=== PATIENT | male | born 1975 | race Caucasian/White ===

== ENCOUNTER 2023-09-23 09:57 | Emergency (ER) | payer OTHER, SELFPAY ==
--- NOTE | ~2023-09-23 | US_ITS ---
EXAMINATION: US SCROTUM CLINICAL INFORMATION: Left testicular pain/swelling. COMPARISON: None available. TECHNIQUE: A sonogram of the scrotum was performed assessing ye-scale appearance and color Doppler flow. Spectral Doppler analysis of the arterial and venous flow were performed in the testes bilaterally. FINDINGS: RIGHT: Right testicle measures 4.1 x 2.8 x 3.6 cm, volume 21 mL. No focal testicular parenchymal lesions are visualized. Spectral Doppler analysis of the arterial and venous flow is normal in the right testis. Right epididymal head is normal in size. No right hydrocele or varicocele is seen. Right epididymal Doppler flow is normal. LEFT: Left testicle measures 4.1 x 2.5 x 2.7 cm, volume 15 mL. No focal testicular parenchymal lesions are visualized. Spectral Doppler analysis of the arterial and venous flow is normal in the left testis. Left epididymal head is normal in size. No left varicocele is seen. Left epididymal Doppler flow is normal. A large left hydrocele is noted. US/US scrotum IMPRESSION: 1. Normal testicles and epididymides. 2. Large left hydrocele.
--- NOTE | ~2023-09-23 | US_ITS ---
EXAMINATION: US SCROTUM CLINICAL INFORMATION: Left testicular pain/swelling. COMPARISON: None available. TECHNIQUE: A sonogram of the scrotum was performed assessing ye-scale appearance and color Doppler flow. Spectral Doppler analysis of the arterial and venous flow were performed in the testes bilaterally. FINDINGS: RIGHT: Right testicle measures 4.1 x 2.8 x 3.6 cm, volume 21 mL. No focal testicular parenchymal lesions are visualized. Spectral Doppler analysis of the arterial and venous flow is normal in the right testis. Right epididymal head is normal in size. No right hydrocele or varicocele is seen. Right epididymal Doppler flow is normal. LEFT: Left testicle measures 4.1 x 2.5 x 2.7 cm, volume 15 mL. No focal testicular parenchymal lesions are visualized. Spectral Doppler analysis of the arterial and venous flow is normal in the left testis. Left epididymal head is normal in size. No left varicocele is seen. Left epididymal Doppler flow is normal. A large left hydrocele is noted. US/US scrotum doppler IMPRESSION: 1. Normal testicles and epididymides. 2. Large left hydrocele.
[2023-09-23 10:13] VITALS: BP 130/41; PULSE 69; RESP 18; TEMP 36.8; O2SAT 98; BMI 32.4
--- NOTE | 2023-09-23 11:02 | PC.NURSE ---
PT'S L SCROTUM IS LARGER THAN THE R SIDE. PT STATES TENDER WITH HIM PALPATING. AWARE.
--- NOTE | 2023-09-23 11:07 | ED.MALEGU ---
HPI - Male Genitourinary General Chief complaint: Urogenital-Male Stated complaint: testicle issues Time Seen by Provider: 09/23/23 11:04 Source: patient Mode of arrival: ambulatory Limitations: no limitations History of Present Illness HPI Narrative: Patient is a a 48-year old male presenting to the emergency department with complaint of left testicular pain and swelling for the past 2 weeks. States pain has been constant. At time pain radiates around to lower back. Denies fever, nausea, vomiting. Denies penile discharge. States has not had sexual intercourse for several years, denies concern for STIs. Denies rash or erythema. Denies dysuria, frequency, hematuria or other urinary complaints. Pain increases with sitting due to pressure. MD Complaint: testicle pain and testicle swelling Onset (ago): week(s) Duration: constant Location: left testicle Radiation: left inguinal region Severity scale (1-10): 5 Quality: aching Relieving factors: none Exacerbating factors: palpation Associated symptoms: Reports denies other symptoms Related Data Sexually active: No Allergies Allergy/AdvReac Type Severity Reaction Status Date / Time No Known Allergies Allergy Verified 09/23/23 10:12 Review of Systems Review of Systems: As per HPI Yes all other systems are reviewed and are negative Constitutional: Constitutional: Reports as per HPI [facility] Social History Social History Smoked in Last 30 Days: Yes Use of substances other than those prescribed or required for medical reasons: Yes Advance Directives: No Advance Directives Information Provided: No Physical Exam Vital Signs: Vital Signs: Last Vital Signs Temp 98.4 F 09/23/23 12:09 Pulse 57 09/23/23 12:09 Resp 16 09/23/23 12:09 BP 119/53 L 09/23/23 12:09 Pulse Ox 98 09/23/23 12:09 O2 Del Method Room Air 09/23/23 12:09 BMI result Body Mass Index 32.4 Vital signs have been reviewed and appear to be correct. Blood pressure normal. Heart rate normal. Respiratory rate normal. Temperature normal. Oxygen saturation normal. Const: General: cooperative, healthy appearing and no acute distress Orientation/consciousness: oriented to person, oriented to place, oriented to time and patient oriented x3 Limitations: no limitations HEENT: Head: Yes normocephalic and Yes atraumatic Ears: external ears normal General nose exam: Normal external nose present Face and sinus: Yes face symmetric Mouth: oropharynx normal and moist mucous membranes Throat: Yes uvula midline Eyes: Pupils: Equal, round and reactive pupils present Neck: Neck: Yes normal visual inspection and Yes supple Resp: Effort & Inspection: normal respiratory effort and able to speak in complete sentences Auscultation: clear to auscultation bilaterally Cardio: Rate: regular rate Rhythm: regular rhythm Heart sounds: S1 normal heart sound present and S2 normal heart sound present GI: Palpation (GI): Soft to palpation and nontender Auscultation: normoactive bowel sounds : Other: Exam chaperoned by SHERICE Malone student General: Yes no CVA tenderness Penis: normal penis Scrotum: no ecchymosis, not erythematous and testes descended bilaterally Testes: testicular lie normal and epididymal tenderness on the left Back/Spine/Pelvis: Back: no CVA tenderness Skin: General skin exam: elasticity normal and turgor normal Neuro: General: oriented to person, oriented to place, oriented to time, patient oriented x3, moves all extremities, no focal motor deficits and CN's II-XI intact bilaterally Cranial nerves: Yes Equal, round and reactive pupils present Cognition (Neuro): normal cognition Extrem: General: Yes full ROM, Yes no pedal edema and Yes no calf tenderness Psych: Mental Status: mental status grossly normal Affect: normal affect Thought process: Normal thought process present Medical Decision Making Medical Decision Making [facility] Narrative: Patient is a a 48-year old male presenting to the emergency department with complaint of left testicular pain and swelling for the past 2 weeks. On exam patient is awake, A+Ox3, VS WNL, afebrile, normal neurological exam without focal deficits, physical exam findings as above. Given reported symptoms and physical exam findings, initial differential includes testicular torsion, epididymitis, epididymo-orchitis, hydrocele, varicocele, STI, UTI. Ultrasound notable for large hydrocele. My interpretation is in agreement with the radiologist's interpretation. No evidence of infection on UA. CT NG pending, will update patient with any positive results. Return precautions discussed at bedside. Will refer to urology for any ongoing symptoms. Patient verbalized understanding of and agreement with plan. Differential Diagnosis Differential Diagnoses: The differential diagnosis associated with the presentation includes As per [facility]. Admission/Observation Consideration of admission/observation: Escalation of care including admission/observation considered Lab Data [facility] Lab Attestation statement: I reviewed the patient's lab results. As per MDM. Labs: Lab Results 09/23/23 Range/Units 11:36 Urine Color Yellow Urine Appearance Clear Urine pH 7.0 (5.0-9.0) Ur Specific [place] 1.015 (1.005-1.025) Urine Protein Negative (Neg-Trace) mg/dL Urine Glucose (UA) Negative (Negative) mg/dL Urine Ketones Negative (Negative) mg/dL Urine Blood Small (1+) H (Negative) Urine Nitrite Negative (Negative) Ur Leukocyte Esterase Negative (Negative) Urine RBC 6-10 H (0-2) /HPF Urine WBC 0-5 (0-5) /HPF Ur Squamous Epith Cells 0-2 (0-2) /HPF Urine Bacteria None Seen (None Seen) Hyaline Casts 0-2 (0-2) /LPF Independent Interpretation I performed an independent interpretation of an: Ultrasound Interpretation: Large left hydrocele, no evidence of torsion Radiology Impression Discussion of test interpretation with radiology: I have reviewed the radiologist's reading. Radiologist Impression: US/US scrotum IMPRESSION: 1. Normal testicles and epididymides. 2. Large left hydrocele. External Record Review External record reviewed: Inpatient record, Office record and Outpatient record Discharge Plan Discharge Clinical Impression: Hydrocele, left Patient Disposition: Home, Self-Care Instructions: Hydrocele (ED), Testicle Pain (ED), Scrotal Pain (ED) Additional Instructions: You were evaluated in the emergency department today for scrotal pain and swelling. Your ultrasound revealed a hydrocele which should resolve on it's own. You can purchase supportive underwear to provide some relief. You can also take 650 mg of Tylenol or 600 mg of ibuprofen every 6 hours as needed for pain. You can also alternate these medications every 3 hours if needed. For example, at noon take Tylenol, then at 3:00 p.m. take ibuprofen, then at 6:00 p.m. take Tylenol. You are being referred to Urology for any ongoing symptoms please call their office to schedule an appointment if needed. Return to the emergency department if you develop worsening pain, increased swelling, redness, discharge or drainage from your penis, vomiting, fever 100.4? F or greater, back or flank pain, or any other concerning symptoms. Referrals: [facility] [Provider Group]
--- NOTE | 2023-09-23 11:14 | PC.NURSE ---
PT AMB (I) GAIT STEADY TO ULTRASOUND WITH US TECH.
[2023-09-23 11:47] LABS: Appearance Urine Clear; Color Urine Yellow; Glucose Urine UA Negative (Negative); Leukocyte Esterase Urine Negative (Negative); Nitrite Urine Negative (Negative); Specific Gravity - Urine 1.015 (1.005-1.025); UMIC TRIGGER UACC YES; Urine Blood Small (1+) (Negative); Urine Ketones Negative (Negative); Urine Protein Negative (Neg-Trace)
[2023-09-23 11:54] LABS: Bacteria Urine None Seen (None Seen); Hyaline Casts Urine 0-2 /LPF (0-2); Squamous Epithelial Cell Urine 0-2 /HPF (0-2); WBC Urine 0-5 /HPF (0-5)
[2023-09-23 12:09] VITALS: BP 119/53; PULSE 57; RESP 16; TEMP 36.9; O2SAT 98
[2023-09-24 03:58] LABS: CT PCR NOT DETECTED (Not Detect.); NG PCR NOT DETECTED (Not Detect.)
== END 2023-09-23 13:08 | disposition home or self-care (01) ==
PROVIDERS: Registered Nurse Emergency; Emergency Provider Emergency Medicine Emergency Medical Services
DX: N43.3 Hydrocele, unspecified (principal); N50.812 Left testicular pain; M54.50 Low back pain, unspecified; R10.2 Pelvic and perineal pain; Z79.899 Other long term (current) drug therapy
CPT/HCPCS: 0353U; 51798; 76870; 81001; 93975; 99284

== ENCOUNTER 2023-10-27 10:51 | Outpatient (AMB) | payer OTHER, SELFPAY ==
--- NOTE | 2023-10-27 10:51 | MHC.OFFVIS ---
Intake Intake Visit Reasons: large left hydrocele Intake Note: New Patient presents for initial visit for large left hydrocele Urology Medications: none Blood Thinner: none Bobbin Trucker Required: No Accompanied by: Self / Same As Patient Allergies No Known Allergies Allergy (Verified 10/27/23 11:20) Medication List - Last Reconciled 10/27/23 by SHAWANDA Herrera No Known Home Meds HPI HPI Comments History of Present Illness Details Rigo is a very pleasant 48-year-old male patient. He presents to the office today as a new patient for large left-sided hydrocele. In discussion with the patient today he reports having seeked emergecny room care the end of August for left-sided testicular pain he had been experiencing. A scrotal ultrasound was ordered and performed. These results reviewed with the patient today. Left epididymal head is normal in size. No left varicocele is seen. Left epididymal Doppler flow is normal. A large left hydrocele is noted. He reports pain/discomfort is more prominent with walking/activity. When asked he reports noting pain and increased size of left testicle for approximately 2 months now. He denies any issues with his urination and or noting penile discharge. When asked he states he has not had sexual intercourse for years denies any concerns for STDs. In assessment of the patient today moderate size left sided hydrocele noted otherwise no open areas, drainage, or reddness noted. In office urinalysis results reviewed with the patient today. Discussed at length treatment options with surveillance monitoring verses in office drainage verses surgical intervention. Discussed risks and benefits of these interventions at length. All questions were answered. Review of Systems Const All systems reviewed & are unremarkable except as noted in HPI and below Physical Exam Const General: cooperative, healthy appearing, comfortable, no acute distress, well developed, alert and awake Orientation/consciousness: patient oriented x3 Limitations: no limitations HEENT Head: Yes normal to inspection, Yes normocephalic and Yes atraumatic Ears: hearing grossly normal bilaterally Eyes General: appearance normal, both eyes and all related structures Neck Neck: Yes normal visual inspection and Yes trachea midline Chest Chest palpation & inspection: normal inspection of the chest Resp Effort & Inspection: normal respiratory effort and able to speak in complete sentences Cardio Rate: regular rate GI Inspection: Yes normal to inspection General: Yes no CVA tenderness Penis: circumcised Meatus: meatus normal Scrotum: Hydrocele present (moderate) on the left Back/Spine/Pelvis Back: no CVA tenderness Skin General skin exam: no rashes or lesions noted Neuro General: patient oriented x3 Extrem General: Yes normal to inspection Psych Appearance: grossly normal and well kempt Mental Status: mental status grossly normal Speech and movement: Normal speech and movement present and Clear speech present Affect: normal affect Attitude: cooperative Thought process: Normal thought process present Thought content: Normal thought content present Insight: Fair insight present (Psych) Judgement: Fair judgement present (Psych) Results AMB Urinalysis, Automated UA Leukoctes 0 Theo/uL Last Edit by Receptor on 10/27/23 11:08 UA Nitrite Negative Last Edit by Receptor on 10/27/23 11:08 UA Urobilinogen 0.2 mg/dL Last Edit by Receptor on 10/27/23 11:08 UA Protein 15 mg/dL Last Edit by Receptor on 10/27/23 11:08 UA pH 6.0 Last Edit by Receptor on 10/27/23 11:08 UA Blood 200 Donta/uL Last Edit by Receptor on 10/27/23 11:08 UA Specific [place] 1.030 Last Edit by Receptor on 10/27/23 11:08 UA Ketone Negative Last Edit by Receptor on 10/27/23 11:08 UA Bilirubin 0 mg/dL Last Edit by Receptor on 10/27/23 11:08 UA Glucose 0 mg/dL Last Edit by Receptor on 10/27/23 11:08 Results Reviewed Results Reviewed: Laboratory Last Values Urine pH (Auto) 6.0 10/27/23 10:52 Specific [place] (Auto) 1.030 10/27/23 10:52 Urine Protein (Auto) 15 mg/dL 10/27/23 10:52 Glucose (UA)(Auto) 0 mg/dL 10/27/23 10:52 Urine Ketones (Auto) Negative 10/27/23 10:52 Urine Blood (Auto) 200 Donta/uL 10/27/23 10:52 Urine Nitrite (Auto) Negative 10/27/23 10:52 Urine Bilirubin (Auto) 0 mg/dL 10/27/23 10:52 Urine Urobilinogen (Auto) 0.2 mg/dL 10/27/23 10:52 Leukocyte Esterase (Auto) 0 Theo/uL 10/27/23 10:52 Date of Service: 09/23/23 EXAMINATION: US SCROTUM FINDINGS: RIGHT: Right testicle measures 4.1 x 2.8 x 3.6 cm, volume 21 mL. No focal testicular parenchymal lesions are visualized. Spectral Doppler analysis of the arterial and venous flow is normal in the right testis. Right epididymal head is normal in size. No right hydrocele or varicocele is seen. Right epididymal Doppler flow is normal. LEFT: Left testicle measures 4.1 x 2.5 x 2.7 cm, volume 15 mL. No focal testicular parenchymal lesions are visualized. Spectral Doppler analysis of the arterial and venous flow is normal in the left testis. Left epididymal head is normal in size. No left varicocele is seen. Left epididymal Doppler flow is normal. A large left hydrocele is noted. IMPRESSION: 1. Normal testicles and epididymides. 2. Large left hydrocele. Assessment & Plan Assessment & Plan (1) Hydrocele: Code(s): N43.3 - Hydrocele, unspecified Plan: Risks, benefits and alternatives to therapy were discussed. These include but are not limited to infection, bleeding, damage to local organs and tissues, need for further interventions. ? Anesthetic risks regarding cardiac arrhythmia, blood clots, and potential mortality were discussed. The patient understands the typical recovery time and the outpatient nature of the procedure. After consideration of these risks the patient gives full informed consent and they wish to move ahead with the procedure. Plan In office urinalysis results reviewed with the patient today; as noted above. Discussed at length treatment options for hydrocele; surveillance monitoring verses in office drainage verses surgical intervention; discussed risk and benifits of these interventions at length He denies any bothersome urinary issues. He is happy with his current voiding parameters. Discussed potential causes of hydroceles. Will schedule for left sided hydrocelectomy as discussed with Dr. Juarez. Follow up s/p left-sided hydrocelectomy per Dr. Yusuf orders or sooner with any issues, concerns, and or questions. Orders: Orders AMB Urinalysis Automated Today Z13.9 - Encounter for screening, unspecified Patient Instructions: The patient had an opportunity to ask questions regarding the treatment plan. All questions were answered. Physical exam, labs, and imaging were discussed and reviewed in detail. As well as risks, benefits, and discussion of treatment choices. No major barriers to understanding were identified. The patient expressed understanding and agreement with the above treatment plan. The patient was made aware they should contact our office by phone for worsening of their current condition, the appearance of new symptoms, or with any questions or concerns. Compliance is encouraged with any medications and follow up testing that is ordered. It is a privilege to be allowed the opportunity to participate in? your urological care.? Again, if you have any questions or concerns If you have any questions or concerns please do not hesitate to contact me. The office is [phone]. This note is constructed using voice recognition software. While every effort has been made to ensure accuracy pv design and installation technician errors may have been included. Yours sincerely, SHAWANDA Herrera Coding Level of Care Code New Pt Level 4 (18042) Diagnoses Hydrocele N43.3
== END 2023-10-27 11:20 | disposition home or self-care (01) ==
PROVIDERS: Visit Provider Nurse Practitioner Family
DX: Z13.9 Encounter for screening, unspecified (principal); N43.3 Hydrocele, unspecified
CPT/HCPCS: 99204

== ENCOUNTER → 2023-10-27 10:57 | Outpatient (BNVA) | payer OTHER, SELFPAY | PROVIDERS: Visit Provider Nurse Practitioner Family | DX: N43.3 Hydrocele, unspecified (principal) | CPT/HCPCS: 81003; 99202 ==

== ENCOUNTER 2023-12-24 13:19 | Outpatient (AMB) | payer OTHER, SELFPAY ==
--- NOTE | 2023-12-24 14:03 | A.OFFVIS_ITS ---
Intake Intake Visit Reasons: H&P left-sided hydrocelectomy (Confirmed) Allergies No Known Allergies Allergy (Verified 10/27/23 11:20) HPI HPI Comments History of Present Illness Details Rigo is a pleasant male. He is seen for the following urologic conditions - hydrocele Telemedicine Evaluation 15 min Consultation [employer] attempted Hydrocele Large left hydrocele impinging activities of daily living Difficult to walk and cross his legs Intermittent pain Ultrasound with normal left epididymis enlarged left hydrocele Discussed surgery which will require drain in place for 2 days afterwards and healing process 4-6 weeks. He is happy to proceed Review of Systems Const All systems reviewed & are unremarkable except as noted in HPI and below Reports no additional complaints Resp Reports no additional complaints GI Reports no additional complaints Reports as per HPI Musc Reports no additional complaints Physical Exam Telemedicine evaluation Appropriate responses Regular breathing rate and rhythm HEENT Head: Yes normal to inspection Ears: hearing grossly normal bilaterally Eyes General: appearance normal, both eyes and all related structures Neck Neck: Yes normal visual inspection Chest Chest palpation & inspection: normal inspection of the chest Resp Effort & Inspection: normal respiratory effort and able to speak in complete sentences Assessment & Plan Assessment & Plan (1) Hydrocele: Code(s): N43.3 - Hydrocele, unspecified Plan Risks, benefits and alternatives to therapy were discussed. These include but are not limited to infection, bleeding, damage to local organs and tissues, need for further interventions. Anesthetic risks regarding cardiac arrhythmia, blood clots, and potential mortality were discussed. The patient understands the typical recovery time and the outpatient nature of the procedure. After consideration of these risks the patient gives full informed consent and they wish to move ahead with the procedure. Left hydrocelectomy Patient Instructions: Imaging studies, laboratory and physical exam results were discussed and reviewed in detail. No major barriers to patient understanding were identified. An opportunity to ask questions regarding the treatment plan was provided. All questions were answered. The patient expressed understanding and agreement with the above treatment plan. The patient is aware they should contact our office by phone for worsening of their current condition or the appearance of new urologic symptoms. Compliance is encouraged with any medications and followup testing that is ordered. It is a privilege to participate in the urologic care of your patient. If you have any questions or concerns regarding treatment for the above conditions, or other urologic issues, please do not hesitate to contact me. The office telephone contact is [phone]. This note is constructed using voice recognition software. While every effort has been made to ensure accuracy hide and skin fleshing machine operator errors may have been included. Yours sincerely, Dr Denis Juarez MD, [facility] - Urology Providers of Expert, Compassionate Care for the Genitourinary System Telehealth Telehealth Location of provider rendering services: practice address Location of patient: address on file Patient Identification confirmed using: Name, : Yes Telehealth method: video Patient verbally consented to treatment: Yes Patient verbally consented to billing insurance company: Yes Patient informed of any privacy concerns related to visit: Yes Coding Level of Care Code Tele Est Pt Level 3 (41513) Diagnoses Hydrocele N43.3
== END 2023-12-24 14:22 | disposition home or self-care (01) ==
LOC: HO.HUSH 13:20
PROVIDERS: Visit Provider Urology
DX: N43.3 Hydrocele, unspecified (principal)
CPT/HCPCS: 99213

== ENCOUNTER → 2023-12-24 13:19 | Outpatient (BNVA) | payer OTHER, SELFPAY | PROVIDERS: Visit Provider Urology ==

== ENCOUNTER → 2023-12-27 09:59 | Day surgery (SDC) | payer OTHER, SELFPAY ==
--- NOTE | 2023-12-24 13:15 | P.CONAN_ITS ---
Documented by User: Trinh Green NP 12/24/23 13:15 HPI - Anesthesia Eval Consult details Narrative: 48yo M for Hydrocele Repair [facility] Active Problems Active Problems: All Active Problems (Updated 10/27/23 @ 11:25 by LOLI Herrera) Hydrocele (Acute) Social History Social History Patient Tobacco Use Status: Current someday Tobacco user Tobacco use type: Smokeless Tobacco Use of substances other than those prescribed or required for medical reasons: Yes Substance Use Frequency: Occasionally Are you DNR?: No Advance Directives: No Advance Directives Information Provided: Yes Advance Directives on File: No Meds Allergies Allergy/AdvReac Type Severity Reaction Status Date / Time No Known Allergies Allergy Verified 10/27/23 11:20 Home Medications Medication Instructions Recorded Confirmed Last Taken Type No Known Home Meds 10/27/23 10/27/23 Unknown History Assessment and Plan Assessment Anesthesia Assessment: Chart Reviewed Documented by User: Lito Oconnell MD 12/27/23 12:09 [facility] Family History Family history of problems with anesthesia: No Surgical History History of Problems with Anesthesia: No Social History Social History Patient Tobacco Use Status: Current someday Tobacco user Tobacco use type: Smokeless Tobacco Use of substances other than those prescribed or required for medical reasons: Yes Substance Use Frequency: Occasionally Are you DNR?: No Advance Directives: No Advance Directives Information Provided: Yes Advance Directives on File: No Meds Allergies Allergy/AdvReac Type Severity Reaction Status Date / Time No Known Allergies Allergy Verified 10/27/23 11:20 Home Medications Medication Instructions Recorded Confirmed Last Taken Type No Known Home Meds 10/27/23 10/27/23 Unknown History Exam Airway Mallampati Class: I TM Dist: >3cm Neck ROM: Full Denture: Upper and Lower Loose/Missing/Broken Teeth: No Heart: rrr Lungs: cta b/l Assessment and Plan Final Anesthetic Review Family History of Problems with Anesthesia: No History of Problems with Anesthesia: No NPO: Yes ASA Class: II Final Preanesthetic Review: No Changes in Pt Med Stat, Meds/Allgs Chart Reviewed, Consent Obtained/Reviewed and Anes Risks/Benef Reviewed Patient Risk: Low Procedure Risk: Low Anesthetic Plan Anesthetic Plan: GA (cannabis user) Disposition: Standard PACU
[2023-12-27 12:00] VITALS: BP 121/64; PULSE 72; RESP 16; TEMP 36.4; O2SAT 98; BMI 29.6
--- NOTE | 2023-12-27 12:53 | MHC.SHP ---
Pre-Procedural Eval Section A - 24 Hr Update-Section A only Date of Service: 12/27/23 The patient is an INPATIENT: No Changes since office visit: No Cold of Flu in the past 2 weeks, No New Medical Problems, No Changes in Medication and No Patient answered all questions The patient has been examined within 24 hours of the surgical procedure. The History & Physical has been completed within 30 days and I have reviewed it.: Yes Section B - Complete if H&P > 30 days Chief Complaint: Hydrocele, unspecified Allergies: Allergies Allergy/AdvReac Type Severity Reaction Status Date / Time No Known Allergies Allergy Verified 10/27/23 11:20 Plan Diagnosis/Plan: Unchanged (left hydrocelectomy) I have reviewed the history and physical and performed a pertinent physical examination on my patient. No changes have occurred unless specified. Time Spent With Patient Time: Total time managing care of this patient today ____ minutes.
--- NOTE | 2023-12-27 13:30 | PC.NURSE ---
patient had multiple IV attempts by this RN, Kindra Mccartney, RN, Dr. Brooks and Dr. Shah. Unable to obtain IV access. Patient I do not want to be stuck anymore . patient procedure cancelled today. will be rescheduled. recommend order for midline/PICC line placement prior to procedure.
== END ==
LOC: HO.SSS 10:01
PROVIDERS: Visit Provider Urology
DX: N43.3 Hydrocele, unspecified (principal); Z53.8 Procedure and treatment not carried out for other reasons
CPT/HCPCS: J0690; J1100; J1596; J2250; J2405; J2704; J2795; J3010

== ENCOUNTER 2024-01-31 10:50 | Day surgery (SDC) | payer OTHER, SELFPAY ==
--- NOTE | 2024-01-28 13:14 | P.CONAN_ITS ---
Documented by User: Trinh Green NP 01/28/24 13:15 HPI - Anesthesia Eval Consult details Narrative: 48yo M for Left Hydrocele Repair Scheduled for midline insertion at 1100 DOS. [facility] Active Problems Active Problems: All Active Problems Hydrocele (Acute) Past Medical History Medical History (Updated 01/27/24 @ 09:54 by Yahaira Aguirre RN) Hydrocele Family History Family history of problems with anesthesia: No Surgical History Surgical History (Updated 01/27/24 @ 09:56 by Yahaira Aguirre RN) Surgical history unknown History of Problems with Anesthesia: No Social History Social History Patient Tobacco Use Status: Former Tobacco user Tobacco use type: Smokeless Tobacco Substance Use Frequency: Occasionally Are you DNR?: No Advance Directives: Yes Advance Directives on File: Yes Advance Directives Date on File: 01/31/24 Nutrition Risks: No Nutritional Risk Meds Allergies Allergy/AdvReac Type Severity Reaction Status Date / Time No Known Allergies Allergy Verified 10/27/23 11:20 Home Medications ?Medication ?Instructions ?Recorded ?Confirmed ?Last Taken ?Type No Known Home Meds 10/27/23 10/27/23 Unknown History Assessment and Plan Assessment Anesthesia Assessment: Chart Reviewed Final Anesthetic Review Family History of Problems with Anesthesia: No History of Problems with Anesthesia: No Documented by User: Semaj Brower MD 01/31/24 16:22 [facility] Past Medical History Medical History (Updated 01/27/24 @ 09:54 by Yahaira Aguirre RN) Hydrocele Surgical History Surgical History (Updated 01/27/24 @ 09:56 by Yahaira Aguirre RN) Surgical history unknown Social History Social History Patient Tobacco Use Status: Former Tobacco user Tobacco use type: Smokeless Tobacco Substance Use Frequency: Occasionally Are you DNR?: No Advance Directives: Yes Advance Directives on File: Yes Advance Directives Date on File: 01/31/24 Nutrition Risks: No Nutritional Risk Narrative Narrative: Marijuana smoker Meds Allergies Allergy/AdvReac Type Severity Reaction Status Date / Time No Known Allergies Allergy Verified 10/27/23 11:20 Home Medications ?Medication ?Instructions ?Recorded ?Confirmed ?Last Taken ?Type No Known Home Meds 10/27/23 10/27/23 Unknown History Exam Airway Mallampati Class: I TM Dist: <=3cm Neck ROM: Full Denture: Upper and Lower Heart: ok Lungs: ok Assessment and Plan Assessment Anesthesia Assessment: Anesthesia Plan Discussed Final Anesthetic Review NPO: Yes ASA Class: II Final Preanesthetic Review: No Changes in Pt Med Stat, Meds/Allgs Chart Reviewed, Consent Obtained/Reviewed and Anes Risks/Benef Reviewed Patient Risk: Low Procedure Risk: Low Anesthetic Plan Anesthetic Plan: GA and Agree w/ Assess. and Plan Disposition: Standard PACU
[2024-01-31] VITALS (7 sets, daily range): BP systolic 108–139; BP diastolic 43–89; PULSE 58–88; RESP 14–18; TEMP 36.1–36.6; O2SAT 98–100; BMI 32.3
--- NOTE | 2024-01-31 14:45 | HO.MIDLINE_ITS ---
Midline Insertion MIDLINE INSERTION Diagnosis: [Difficult IV access] Indication: Surgery for Hydrocele Pertinent Labs: reviewed Technique: Using sterile technique including cap and mask, glove and drape, the right arm was prepped and draped in the usual sterile fashion of full barrier technique with [facility]. Using ultrasound guidance, right basilic vein access was obtained . BARD powerMidline Catheter was positioned. The procedure was performed in room 272. Ultrasound was used to document vein patency and for needle entry. A formal ultrasound picture was recorded. [employer] has released the line for use and it is currently dressed with a StatLock, Tegaderm, and CHG disc. Verification has been performed for blood return and line patency. Arm Circumference: 33cm Equipment: BARD POWERMidline Catheter Catheter Type: 4FR single lumen catheter Lot #: [id number]
[2024-01-31] MEDS: Lactated Ringers 1,000 ML 100 ML IVCONT (14:49)
--- NOTE | 2024-01-31 14:52 | PC.NURSE ---
patient had a midline place prior to procedure to right arm. WNL. dressing intact. Flushes easily/patent.
--- NOTE | 2024-01-31 14:57 | P.HPSUR_ITS ---
Pre-Procedural Eval Section A - 24 Hr Update-Section A only Date of Service: 01/31/24 The patient is an INPATIENT: No Changes since office visit: No Cold of Flu in the past 2 weeks, No New Medical Problems, No Changes in Medication and No Patient answered all questions The patient has been examined within 24 hours of the surgical procedure. The History & Physical has been completed within 30 days and I have reviewed it.: Yes Section B - Complete if H&P > 30 days Chief Complaint: Hydrocele, unspecified, MIDLINE for OR procedure Details of Present Illness: Left hydrocele Allergies: Allergies Allergy/AdvReac Type Severity Reaction Status Date / Time No Known Allergies Allergy Verified 10/27/23 11:20 Review of Systems Sugical H&P ROS: Negative: Constitution, Cardiovascular, Respiratory, Neurological, Psychiatric, Hem-Onc, Allergic/Immunologic, Gastrointestinal, Genitourinary, Musculoskeletal, Integumentary, Endocrine and Eyes/Ears/Nose/Throat Exam Surgical H&P Exam: Normal: HEENT, Normal: Heart, Normal: Lungs, Normal: Extr emities, Normal: Abdomen, Normal: Skin and Normal: Neurological Plan Diagnosis/Plan: Unchanged (Left hydrocelectomy) I have reviewed the history and physical and performed a pertinent physical examination on my patient. No changes have occurred unless specified. Time Spent With Patient Time: Total time managing care of this patient today ____ minutes.
--- NOTE | 2024-01-31 15:26 | PC.NURSE ---
report given to felipe velasquez rn.
--- NOTE | 2024-01-31 16:34 | W.PM.OPN ---
Operative Note Operative Note Date of Service: 01/31/24 Narrative: PreOperative Diagnosis: Left hydrocele Post Operative Diagnosis: Left hydrocele Procedure: Left Hydrocelectomy Surgeon: Dr Denis Juarez Anesthesia: General Indications for procedure: Left hydrocele with persistent discomfort Procedure: After informed consent was verified the patient was brought to the operating room and placed in a supine position. Anesthesia was administered per protocol. Patient was appropriately shaved and genitals were prepped and draped in sterile fashion. Safety pause time-out was performed. Antibiotics being given. Local anesthetic was infiltrated under the skin in a horizontal fashion on the scrotum. Skin incision was made using a blade through the subdermal layer. The tunica around the testicle was elevated and dissected free from surrounding tissue. The avascular plane around the tunica was entered and using a wet sponge blunt dissection was performed. Any small bleeding perforators were cauterized. The tunica sac was entered and fluid was removed by suction. The sac was then dissected free fully from surrounding attachments. The testicle sac was inverted. Excess thickened sac was dissected and removed using cautery to minimize post procedure bleeding. A bottle neck procedure was performed to approximate edges using a running 3-0 Vicryl suture. Skin edges of the tunica were cauterized carefully in order to try to minimize postprocedure hematoma. Small accessory appendices were removed from the head of epididymis. The testicle with resected sac was placed back into a dependent portion of the scrotum. Overlying skin fascia layer was closed with a running 3-0 Vicryl suture. Skin was closed with interrupted 4-0 chromic sutures. Soft fluff sponges were placed with mesh pants as dressing. Local anesthetic was placed in inguinal cord for post procedure pain relief. Patient tolerated procedure well was extubated in operating room transferred in stable condition to the recovery area Pathology: Hydrocele sac Drains: No drain
== END 2024-01-31 17:31 | disposition home or self-care (01) ==
PROVIDERS: Visit Provider Urology
PROC: (CPT 55060; principal; 2024-01-31 16:20)
DX: N43.3 Hydrocele, unspecified (principal); N39.0 Urinary tract infection, site not specified
CPT/HCPCS: 55040; 36410; 36573; 88302; C1751; J0690; J2704; J2795; J3010

== ENCOUNTER → 2024-01-31 10:50 | Outpatient (BNV) | payer OTHER, SELFPAY | PROVIDERS: Visit Provider Urology | DX: N43.3 Hydrocele, unspecified (principal) | CPT/HCPCS: 55040 ==

== ENCOUNTER → 2024-02-25 13:32 | Outpatient (BNVA) | payer OTHER, SELFPAY | PROVIDERS: Visit Provider Nurse Practitioner Family ==